=== PATIENT | male | born 1975 | race Caucasian/White ===

== ENCOUNTER 2016-11-12 19:29 | Observation (INO) | payer OTHER ==
[2016-11-12] MEDS ORDERED: ONDANSETRON 4 MG/2 ML VIAL ONE (19:35)
--- NOTE | 2016-11-12 19:44 | EDPHY ---
H & P Stated Complaint: pt was given 2 L and zofran 8 mg at race, c/o headache HPI/ROS: HPI CHIEF COMPLAINT: Nausea, vomiting, headache, IronMan HISTORY OF PRESENT ILLNESS: This patient very pleasant 41-year-old male no significant medical history does not take any daily medications he lives locally here, he compete in [email or web address]. Presents emergency room after he had nausea vomiting muscle cramps while during the [email or web address]. To stop harm anyone to medical 10. He had nausea. Abdomen medical 10 at the arm and he was given 2 L normal saline IV fluid 8 mg IV Zofran. He continued to have nausea with vomiting. They decided to send him to the emergency room however he refused ambulance transport came here by private vehicle. Upon arrival here in emergency we complains of 5/10 frontal throbbing headache. He denies any chest pain, shortness of breath, denies muscle aches at this time. Does tell me his nausea is improved. Of note he is not receiving IV fluids here he did receive 2 L normal saline by [facility] medical tent prior to arrival. Past Medical History: No significant medical history Past Surgical History: No significant surgical history Social History: Denies daily use of drugs alcohol tobacco products, lives locally Family History: Noncontributory ROS REVIEW OF SYSTEMS: A comprehensive 10 point review of systems is otherwise negative aside from elements mentioned in the history of present illness. Exam Constitutional appears well nontoxic, triage nursing summary reviewed, vital signs reviewed, awake/alert. Eyes normal conjunctivae and sclera, EOMI, PERRLA. HENT normal inspection, atraumatic, moist mucus membranes, no epistaxis, neck supple/ no meningismus, no raccoon eyes. Respiratory clear to auscultation bilaterally, normal breath sounds, no respiratory distress, no wheezing. Cardiovascular rate normal, regular rhythm, no murmur, no edema, distal pulses normal. Gastrointestinal soft, non-tender, no rebound, no guarding, normal bowel sounds, no distension, no pulsatile mass. Genitourinary no CVA tenderness. Musculoskeletal no midline vertebral tenderness, full range of motion, no calf swelling, no tenderness of extremities, no meningismus, good pulses, neurovascularly intact. Skin pink, warm, & dry, no rash, skin atraumatic. Neurologic awake, alert and oriented x 3, AAOx3, moves all 4 extremities equally, motor intact, sensory intact, CN II-XII intact, normal cerebellar, normal vision, normal speech. Psychiatric normal mood/affect. Heme/Lymph/Immune no lymphadenopathy. Differential Diagnosis: Includes but is not limited to in a particular order, heat exposure, dehydration, electrolyte disturbance, hyponatremia, dehydration causing headache, intracranial bleed, cerebral edema Medical Decision Making: Plan for this patient full roughener, EKG, check electrolytes, hold off on IV fluids he has received 2 L of normal saline prior to arrival, check sodium, re-evaluate. Re-evaluation: EKG interpretation by me on record in [employer] system. Impression time of EKG 2005: This is sinus rhythm rate of 82, abnormal T-waves noted in V1 V2 V3. LVH present. No ST elevation or significant ST depression. Abnormal EKG. CT scan of the head w/o. The results of the study are negative for anything acute. The study was read by Dr. Wolff. I viewed the images myself on the PACS system. 2056: This patient need to be admitted for further IV hydration, ongoing headache, elevated troponin and T-wave abnormalities on EKG. The patient has not any chest pain or shortness of breath. He is feeling better with slow IV hydration. Sodium potassium are normal. Given that he has a positive troponin , ran iron man, abnormal EKG he will need to be admitted to telemetry monitoring for gentle IV hydration and serial enzyme serial EKG. Again he has no chest pain shortness of breath. I spoke with the hospitalist Dr. Cordova who agrees to admit the patient. I have updated the family. He agrees for admission. Source: Patient - Personal History Current Tetanus Diphtheria and Acellular Pertussis (TDAP): Yes Tetanus Vaccine Date: 2016 - Medical/Surgical History Hx Asthma: No Hx Chronic Respiratory Disease: No Hx Diabetes: No Hx Cardiac Disease: No Hx Renal Disease: No Hx Cirrhosis: No Hx Alcoholism: No Hx HIV/AIDS: No Hx Splenectomy or Spleen Trauma: No Other PMH: jaw surgery Constitutional: Initial Vital Signs Temperature (C) 36.9 C 11/12/16 19:35 Heart Rate 87 11/12/16 19:35 Respiratory Rate 18 11/12/16 19:35 Blood Pressure 141/94 H 11/12/16 19:35 O2 Sat (%) 97 11/12/16 19:35 O2 Delivery Mode Room Air Allergies/Adverse Reactions: No Known Allergies Allergy (Unverified 11/12/16 20:51) Medical Decision Making - Diagnostics Imaging Results: Imaging Impressions Head CT 11/12/16 20:26 Impression: 1. Normal CT brain without contrast. 2. No sinusitis. 3. No acute hemorrhage. Findings and recommendations discussed with Emergency Department physician, Jerome Lundy MD at 20:52 hour, 11/12/2016. Final report concurs with initial preliminary interpretation. - Data Points Laboratory Results: Laboratory Results 11/12/16 19:53 11/12/16 19:53 11/12/16 11/12/16 19:53 19:53 WBC 11.75 10^3/uL H 10^3/uL (3.80-9.50) RBC 4.75 10^6/uL 10^6/uL (4.40-6.38) Hgb 15.1 g/dL g/dL (13.7-17.5) Hct 43.7 % % (40.0-51.0) MCV 92.0 fL fL (81.5-99.8) MCH 31.8 pg pg (27.9-34.1) MCHC 34.6 g/dL g/dL (32.4-36.7) RDW 12.3 % % (11.5-15.2) Plt Count 198 10^3/uL 10^3/uL (150-400) MPV 9.7 fL fL (8.7-11.7) Neut % (Auto) 90.1 % H % (39.3-74.2) Lymph % (Auto) 4.9 % L % (15.0-45.0) Lyman % (Auto) 4.5 % % (4.5-13.0) Eos % (Auto) 0.1 % L % (0.6-7.6) Baso % (Auto) 0.1 % L % (0.3-1.7) Nucleat RBC Rel Count 0.0 % % (0.0-0.2) Absolute Neuts (auto) 10.59 10^3/uL H 10^3/uL (1.70-6.50) Absolute Lymphs (auto) 0.58 10^3/uL L 10^3/uL (1.00-3.00) Absolute Monos (auto) 0.53 10^3/uL 10^3/uL (0.30-0.80) Absolute Eos (auto) 0.01 10^3/uL L 10^3/uL (0.03-0.40) Absolute Basos (auto) 0.01 10^3/uL L 10^3/uL (0.02-0.10) Absolute Nucleated RBC 0.00 10^3/uL 10^3/uL (0-0.01) Immature Gran % 0.3 % % (0.0-1.1) Immature Gran # 0.03 10^3/uL 10^3/uL (0.00-0.10) Sodium 143 mEq/L mEq/L (134-144) Potassium 4.5 mEq/L mEq/L (3.5-5.2) Chloride 107 mEq/L mEq/L (97-110) Carbon Dioxide 20 mEq/l L mEq/l (22-31) Anion Gap 16 mEq/L mEq/L (8-16) BUN 23 mg/dL mg/dL (7-23) Creatinine 1.0 mg/dL mg/dL (0.7-1.3) Estimated GFR > 60 Glucose 73 mg/dL mg/dL (70-100) Calcium 9.5 mg/dL mg/dL (8.5-10.4) Magnesium 2.1 mg/dL mg/dL (1.6-2.3) Total Bilirubin 1.1 mg/dL mg/dL (0.1-1.4) Conjugated Bilirubin 0.1 mg/dL mg/dL (0.0-0.5) Unconjugated Bilirubin 1.0 mg/dL mg/dL (0.0-1.1) AST 59 IU/L IU/L (17-59) ALT 37 IU/L IU/L (21-72) Alkaline Phosphatase 100 IU/L IU/L (38-126) Creatine Kinase 806 IU/L H IU/L (0-224) CK-MB (CK-2) Fraction 15.10 ng/mL H ng/mL (0-3.19) CK-MB (CK-2) % 1.9 % % (0.0-4.0) Creatine Kinase Interp NEGATIVE (NEGATIVE) Troponin I 0.073 ng/mL H ng/mL (0-0.034) Total Protein 7.2 g/dL g/dL (6.3-8.2) Albumin 4.5 g/dL g/dL (3.5-5.0) Medications Given: Discontinued Medications Acetaminophen (Tylenol) 1,000 mg PO EDNOW ONE Stop: 11/12/16 20:24 Last Admin: 11/12/16 20:24 Dose: 1,000 mg Sodium Chloride (Ns) 1,000 mls @ 0 mls/hr IV ONCE ONE PRN Reason: Wide Open Stop: 11/12/16 20:26 Last Admin: 11/12/16 20:43 Dose: Not Given Sodium Chloride (Ns) 500 mls @ 0 mls/hr IV ONCE ONE PRN Reason: Wide Open Stop: 11/12/16 20:48 Last Admin: 11/12/16 20:51 Dose: 500 mls Promethazine HCl (Phenergan) 6.25 mg IVP ONCE ONE Stop: 11/12/16 20:48 Last Admin: 11/12/16 20:52 Dose: 6.25 mg Departure - Departure Disposition: [facility] Acute Clinical Impression: Dehydration, Elevated troponin Headache Qualifiers: Headache type: unspecified Headache chronicity pattern: acute headache Intractability: not intractable Qualified Code(s): R51 - Headache Condition: Good Instructions: Dehydration (ED) Referrals: NONE *PRIMARY CARE P,. [Primary Care Provider] - As per Instructions
[2016-11-12 20:00] LABS: % IMMATURE GRANULYOCYTES 0.3 % (0.0-1.1); ABSOLUTE IMMATURE GRANULOCYTES 0.03 10^3/uL (0.00-0.10); ADD DIFF? NO; ADD MORPH? NO; ADD SCAN? NO; ATYPICAL LYMPHOCYTE FLAG 0 (0-99); FRAGMENT RBC FLAG 0 (0-99); HEMATOCRIT 43.7 % (40.0-51.0); HEMOGLOBIN 15.1 g/dL (13.7-17.5); LEFT SHIFT FLG 0 (0-99); LIPEMIA HEMOLYSIS FLAG 90 (0-99); MEAN CELL HEMOGLOBIN 31.8 pg (27.9-34.1); MEAN CELL HEMOGLOBIN CONCENTR. 34.6 g/dL (32.4-36.7); MEAN PLATELET VOLUME 9.7 fL (8.7-11.7); PLATELET CLUMPS FLAG 10 (0-99); PLATELET COUNT 198 10^3/uL (150-400); RED BLOOD CELL COUNT 4.75 10^6/uL (4.40-6.38); RED CELL DISTRIBUTION WIDTH 12.3 % (11.5-15.2)
--- NOTE | 2016-11-12 20:09 | CPEKG ---
Heart Rate: 82 RR Interval: 732 P-R Interval: 180 QRSD Interval: 96 QT Interval: 388 QTC Interval: 453 P [place]: 81 QRS [place]: 77 T Wave [place]: 37 EKG Severity - ABNORMAL ECG - EKG Impression: SINUS RHYTHM EKG Impression: PROBABLE LEFT ATRIAL ABNORMALITY EKG Impression: LEFT VENTRICULAR HYPERTROPHY EKG Impression: BORDERLINE INFERIOR Q WAVES EKG Impression: ABNORMAL T, CONSIDER ISCHEMIA, ANTERIOR LEADS Electronically Signed By: Jerome Lundy 12-Nov-2016 22:55:14
[2016-11-12 20:15] LABS: ALANINE AMINOTRANSFERASE 37 IU/L (21-72); ALBUMIN 4.5 g/dL (3.5-5.0); ALKALINE PHOSPHATASE 100 IU/L (38-126); ANION GAP 16 mEq/L (8-16); ASPARTATE AMINOTRANSFERASE 59 IU/L (17-59); BILIRUBIN,TOTAL 1.1 mg/dL (0.1-1.4); BILIRUBIN-CONJUGATED 0.1 mg/dL (0.0-0.5); CALCIUM 9.5 mg/dL (8.5-10.4); CARBON DIOXIDE 20 mEq/l (22-31); CHLORIDE 107 mEq/L (97-110); GLOMERULAR FILTRATION RATE > 60; GLUCOSE 73 mg/dL (70-100); MAGNESIUM 2.1 mg/dL (1.6-2.3); POTASSIUM 4.5 mEq/L (3.5-5.2); SODIUM 143 mEq/L (134-144); TOTAL PROTEIN 7.2 g/dL (6.3-8.2)
[2016-11-12] MEDS ORDERED: ACETAMINOPHEN 500 MG TAB ONE (20:20)
[2016-11-12] MEDS ORDERED: ACETAMINOPHEN 500 MG TAB PO ONE (20:23)
[2016-11-12 20:25] LABS: TROPONIN I 0.073 ng/mL (0-0.034)
[2016-11-12] MEDS ORDERED: NS 1,000 ML IV ONE (20:25)
[2016-11-12] MEDS ORDERED: PROMETHAZINE HCL 25 MG/ML INJ IVP ONE (20:47)
[2016-11-12] MEDS ORDERED: NS 500 ML IV ONE (20:47)
[2016-11-12 20:48] LABS: CK-MB INTERPRETATION NEGATIVE (NEGATIVE)
[2016-11-12] MEDS ORDERED: HYDROmorphONE/DILAUDID 1 MG/ML SYR ONE (20:59)
[2016-11-12] MEDS ORDERED: HYDROmorphONE/DILAUDID 1 MG/ML SYR IVP ONE (21:11)
[2016-11-12] MEDS ORDERED: ONDANSETRON 4 MG/2 ML VIAL IVP PRN (21:52)
[2016-11-12] MEDS ORDERED: ONDANSETRON DISINTEGRATING 4 MG TAB PO PRN (21:52)
[2016-11-12] MEDS ORDERED: ACETAMINOPHEN 325 MG TAB PO PRN (21:52)
[2016-11-12] MEDS ORDERED: NS 1,000 ML IV SCH (22:00)
--- NOTE | 2016-11-12 22:51 | GHP ---
[f rep st] HISTORY AND PHYSICAL DATE OF ADMISSION: 11/12/2016 HISTORY OF PRESENT ILLNESS: The patient is a pleasant 41-year-old gentleman who competed in the [employer] tri[place] today. During the run, he felt poorly. At mile 15, he started walking, and then he finally stopped. Subsequently had some nausea and vomiting. He drank water, Gatorade, and V8 duri ng the race. Iron Man race completed. Other long events, include [address] races. He did not have chest pain or anginal-type symptoms. His grandfather at early age of heart dis ease. He was also a heavy smoker. His father has not had heart problems. Did not have a history o f anginal symptoms or heart failure. He has been told he has hyperlipidemia, but does not recall is LDL is. In the emergency tent, he received 2 L of normal saline. They did not check a sodium prio r to that. He now presents with ongoing, but improving, nausea. He was found have an abnormal EKG and an elevated troponin. REVIEW OF SYSTEMS: Complete 10-point review of systems conducted, negative, as except as noted in t he HPI. PAST MEDICAL HISTORY: Notable for hyperlipidemia. ALLERGIES: No known drug allergies. HOME MEDICATIONS: None. SOCIAL HISTORY: No alcohol, no tobacco. . FAMILY HISTORY: As in the HPI. PHYSICAL EXAMINATION: VITAL SIGNS: Temp 36.9, blood pressure 141/94, pulse 87, breathing 18 times a minute, 97% on room air. GENERAL: In no acute distress. HEENT: Sclerae anicteric. Oropharynx clear. Mucous membranes are moist. NECK: Supple without lymphadenopathy or JVD. LUNGS: Clear to auscultation bilaterally. HEART: S1, S2. ABDOMEN: Soft, nontender, nondistended. LOWER EXTREMI TIES: No edema. Calves nontender. SKIN: Has sunburn. NEUROLOGIC: Nonfocal. LABORATORY: Sodium 143, potassium 4.5, chloride 107, bicarb 20, BUN 23, creatinine 1.0. LFTs katie l. CK is 806, troponin 0.073. White count 11.7, hematocrit 43, platelets 198,000. EKG, interprete d by me, shows sinus at 82 with normal axis and intervals. There are T-wave inversions in V1, V2, V 3. There is a 0.[address] elevation in V3. V4 is normal. There are no reciprocal changes. No prior for comparison. Head CT obtained secondary to headache shows normal CT; no sinusitis, no hemorrhag e. I discussed the case with Dr. Jerome Lundy. ASSESSMENT AND PLAN: A 41-year-old gentleman who failed to complete the Iron Man today secondary to fatigue with nausea, vomiting, positive troponin, abnormal EKG. 1. Positive troponin/abnormal EKG. I suspect this is strain; however, it is a somewhat concerning pattern. He does not have any chest pain or anginal symptoms. We will cycle troponins, follow him on telemetry, give him an aspirin, and repeat in the morning. I have not ordered an echocardiogram. Given his history of elevated cholesterol, will check a cholesterol panel in the morning. 2. Nausea, vomiting. I suspect this is secondary to straining in the Iron Man. We will follow. It could be an anginal equivalent. I feel it is more likely to be a result of 8 hours of exertion in the sun. 3. Question hyponatremia. The patient was taking V8 and other things in the chance his sodium was low, and now it is high. It may be falsely raised, although I think patient looks pretty good. Nestor l follow. 4. Elevated CK. Will repeat in the morning. DISPOSITION: Observation status. /[id number]/MODL
--- NOTE | 2016-11-13 00:16 | CPEKG ---
Heart Rate: 76 RR Interval: 789 P-R Interval: 176 QRSD Interval: 96 QT Interval: 432 QTC Interval: 486 P [place]: 81 QRS [place]: 76 T Wave [place]: 47 EKG Severity - BORDERLINE ECG - EKG Impression: SINUS RHYTHM EKG Impression: RSR prime, T-wave inversions anteriorly unchanged from 11/12/2016. EKG Impression: Cannot exclude anterior ischemia Electronically Signed By: Yohannes Reynolds 13-Nov-2016 10:38:04
[2016-11-13] MEDS: ASPIRIN 81 MG CHEWABLE TAB PO SCH ×2 (00:27→08:17)
[2016-11-13 06:23] LABS: ANION GAP 9 mEq/L (8-16); CALCIUM 8.5 mg/dL (8.5-10.4); CARBON DIOXIDE 21 mEq/l (22-31); CHLORIDE 109 mEq/L (97-110); CHOLESTEROL 175 mg/dL (140-200); CHOLESTEROL/HDL RATIO 2.65 RATIO (1.00-4.97); GLOMERULAR FILTRATION RATE > 60; GLUCOSE 79 mg/dL (70-100); HIGH DENSITY LIPOPROTEIN 66 mg/dL (40-65); LDL/HDL RATIO 1.55 RATIO (1.00-3.64); LOW DENSITY LIPOPROTEIN 102 mg/dL (70-100); NON-HIGH DENSITY LIPOPROTEIN 109 mg/dL (90-129); POTASSIUM 3.9 mEq/L (3.5-5.2); SODIUM 139 mEq/L (134-144); TRIGLYCERIDE 39 mg/dL (40-150); VERY LOW DENSITY LIPOPROTEINS 7 mg/dL (8-25)
[2016-11-13 06:34] LABS: TROPONIN I 0.051 ng/mL (0-0.034)
[2016-11-13 07:44] LABS: CK-MB INTERPRETATION NEGATIVE (NEGATIVE)
--- NOTE | 2016-11-13 12:28 | PDDCSUM ---
Discharge Summary Discharge Summary: Dates of service 11/12-11/13/16 Discharge dx: pre syncope elevated trop/abnormal ecg n/v Procedures performed: echocardiogram/head ct consultations: None Hospital course by problem # pre syncope: all in all does not seem to be an underlying heart or other condition but rather related to competing in iron man/dehydration/heat exposure and over exertion. Echo performed given family hx of sudden cardiac --was completely normal. No further sxs. Dc home. # elevated trop/twi: mildly elevated trop to highest of 0.07 and twi noted in v1 -v3, all in setting of running iron man etc. No chest pain, echo normal. No need for stress test given normal echo and only mild trop bump despite competing very agggressively in [employer]. # n/v: resolved, related to dehydration and heat exposure. Head ct performed to r/u intracerebral edema and was norml. DC home f/u with pcp > 35 minutes spent in dc more than half in face to face counseling of patient and his regarding test results and advice around future races
[2016-11-13 12:58] VITALS: BP 114/63; PULSE 74; RESP 21; TEMP 97.8; O2SAT 94
--- NOTE | 2016-11-13 17:31 | ECHO ---
[id number] + + [address] : : [place] [address] : : [phone] + + Adult Echocardiographic Report + ------+ :Name: CHRISTINA MOON Cherry Date: 11/13/2016 09:23 AM : : Hospital Admission Number: [id number] Locatio n: 213: :: 1975 Gender: Male Height: 70 in : :Age: 41 yrs Race: WH Weight: 160 lb : :Reason For Study: Elevated troponin/EKG changes/Iron man : : BSA: 1.9 meters 2 : + ------+ MMode/2D Measurements \T\ Calculations IVSd: 0.84 cm LVIDd: 4.5 cm FS: 43.8 % Ao root diam: LVPWd: 0.68 cm LVIDs: 2.5 cm EDV(Teich): 3.5 cm 90.9 ml LA dimension: ESV(Teich): 3.8 cm 22.6 ml EF(Teich): 75.2 % LVLd ap4: 9.3 cm SV(MOD-sp4): EDV(MOD-sp4): 77.0 ml 105.0 ml LVLs ap4: 7.3 cm ESV(MOD-sp4): 28.0 ml EF(MOD-sp4): 73.3 % Normal Measurement Values: + + :LVIDd (3.5-5.7cm) IVSd (0.6-1.1cm) LVPWd (0.6-1.1cm) Aortic Root (2.0-3.7cm)Left Atrium (1.5-4.0cm): :LV Vol(d) (76-115ml) LV Vol(s) (29-48ml) Ejec Fraction (50-65%)PV Audie (0.6- 1.2m/s) TV Audie (0.4-1.0m/s) : :MV E Audie (0.8-1.0m/s)MV A Audie (0.3-1.0m/s)LVOT Audie (0.7-1.2m/s) Asc Ao Audie ( 0.9-1.8m/s) : + + Doppler Measurements \T\ Calculations MV E max audie: 69.1 cm/sec Ao V2 max: 138.5 cm/sec MV A max audie: 44.4 cm/sec Ao max P.7 mmHg MV E/A: 1.6 Left Ventricle The left ventricle is normal in size. There is normal left ventricular wall thickness. Left ventricular systolic function is normal. Ejection Fraction = 65-70%. No regional wall motion abnormalities noted. Right Ventricle The right ventricle is normal in size and function. Atria The left atrial size is normal. Right atrial size is normal. Mitral Valve The mitral valve is normal in structure and function. There is no evidence of mitral valve prolapse. There is no mitral valve stenosis. There is trace mitral regurgitation. Tricuspid Valve Normal tricuspid valve. There is trace tricuspid regurgitation. Aortic Valve The aortic valve is trileaflet. The aortic valve opens well. There is no aortic stenosis. There is no aortic insufficiency. Pulmonic Valve The pulmonic valve is normal in structure and function. There is no pulmonic valvular regurgitation. Great Vessels The aortic root is normal size. Pericardium/Pleural There is no pericardial effusion. Conclusion A complete two-dimensional transthoracic echocardiogram was performed (2D, M-mode, Doppler and color flow Doppler). Left ventricular systolic function is normal. Ejection Fraction = 65-70%. No regional wall motion abnormalities noted. There is trace mitral regurgitation. There is trace tricuspid regurgitation. Final Reading Physician: Dr Marisol Lewis electronically signed on 11/13/2016 05:30 PM Ordering Physician: Lois Pantoja Performed By: Esperanza Guzman, MARTHACS
== END 2016-11-13 13:15 | disposition home or self-care (01) ==
LOC: INTOOBSV 20:56 → F2W 22:05
PROVIDERS: ADMIT Internal Medicine; ATTEND Internal Medicine
DX: E86.0 Dehydration (principal); R94.31 Abnormal electrocardiogram [ECG] [EKG]
CPT/HCPCS: 70450; 71010; 93005; 93306; G0378; 96374; J1170; J2405; J2550